=== PATIENT | female | born 1960 | race Two or more races ===

== ENCOUNTER → 2017-05-08 | Outpatient (CLI) | payer OTHER ==
[~2017-05-08] MED LIST: CALTTAB5 PO
[2017-05-08 15:23] LABS: AUTOMATED NEUTROPHIL # 2.3 TH/MM3 (1.8-7.7); BASOPHIL # 0.1 TH/MM3 (0-0.2); BASOPHIL % 1.3 % (0.0-2.0); EOSINOPHIL # 0.2 TH/MM3 (0-0.4); EOSINOPHIL % 3.5 % (0.0-4.0); HEMATOCRIT 34.7 % (35.0-46.0); HEMO FLAGS DIFF FINAL; LYMPH % 46.4 % (9.0-44.0); LYMPHOCYTE # 2.6 TH/MM3 (1.0-4.8); MEAN CELL VOLUME 86.1 FL (80.0-100.0); MEAN CORPUSCULAR HEMOGLOBIN 29.1 PG (27.0-34.0); MEAN CORPUSCULAR HGB CONC 33.8 % (32.0-36.0); MONO % 7.9 % (0.0-8.0); NEUT % 40.9 % (16.0-70.0); PLATELET COUNT 316 TH/MM3 (150-450); RED BLOOD COUNT 4.04 MIL/MM3 (4.00-5.30); RED CELL DISTRIBUTION WIDTH 13.6 % (11.6-17.2); WHITE BLOOD COUNT 5.5 TH/MM3 (4.0-11.0)
[2017-05-08 15:25] LABS: BACTERIA, URINE RARE /hpf; BLOOD, URINE NEG (NEG); COMMENT (UR) CULT NOT INDICATED; CULTURE IF INDICATED CULT NOT INDICATED; GLUCOSE,URINE NEG (NEG); KETONE, URINE NEG (NEG); NITRITE,URINE NEG (NEG); SQUAMOUS EPITHELIAL CELL URINE <1 /hpf (0-5); URINE COLOR LIGHT-YELLOW (YELLW/STRAW)
[2017-05-08 15:58] LABS: ALT (GPT) 16 U/L (10-53); ANION GAP 7 MEQ/L (5-15); AST (GOT) 18 U/L (15-37); BICARBONATE 28.4 MEQ/L (21.0-32.0); BLOOD UREA NITROGEN 13 MG/DL (7-18); CHLORIDE 105 MEQ/L (98-107); GLOMERULAR FILTRATION RATE 83 ML/MIN (>89); GLUCOSE,FASTING 97 MG/DL (74-99); POTASSIUM 3.8 MEQ/L (3.5-5.1); SODIUM (NA) 140 MEQ/L (136-145)
[2017-05-08 16:00] LABS: ALKALINE PHOSPHATASE 58 U/L (45-117); TOTAL BILIRUBIN ADULT 0.4 MG/DL (0.2-1.0)
--- NOTE | 2017-05-09 23:46 | EKG ---
Date Performed: 05/08/2017 Time Performed: 14:31:14 PTAGE: 56 years EKG: Sinus rhythm NONSPECIFIC T-WAVE ABNORMALITY BORDERLINE ECG NO PREVIOUS TRACING DOCTOR: Francesca Max Interpretating Date/Time 05/09/2017 23:44:59
== END ==
LOC: CPRE 14:11
PROVIDERS: ATTEND Obstetrics & Gynecology Gynecology
DX: Z01.812 Encounter for preprocedural laboratory examination (principal); Z01.810 Encounter for preprocedural cardiovascular examination; N99.3 Prolapse of vaginal vault after hysterectomy; R94.31 Abnormal electrocardiogram [ECG] [EKG]
CPT/HCPCS: 36415; 80053; 81001; 85025; 93005

== ENCOUNTER → 2017-05-23 | Day surgery (SDC) | payer OTHER ==
--- NOTE | 2017-05-09 15:23 | MH ---
cc: JAMAL POLLARD MD,AIMEE Suárez MD DATE OF ADMISSION: 05/23/2017 DATE OF : 1960 ADMITTING DIAGNOSIS: Anterior posterior repair. HISTORY OF PRESENT ILLNESS The patient is a 56-year-old female, 4, para 4 status post prior hysterectomy in 2005 for pelvic organ prolapse who presents with complaints of pelvic pressure, discomfort and bulging sensation. On exam she has stage II pelvic organ prolapse and has elected for definitive repair. PAST MEDICAL HISTORY The patient's past medical history is negative for heart, lung, liver disease, hypertension, diabetes or stroke. ALLERGIES None. MEDICATIONS None. GYNECOLOGIC HISTORY No STDs or abnormal Pap smears. Hysterectomy for benign condition through vaginal approach. OBSTETRICAL HISTORY Four vaginal deliveries, largest baby 8 pounds. SOCIAL HISTORY Does not smoke, use alcohol or drugs. Has good social support. FAMILY HISTORY Noncontributory. PAST SURGICAL HISTORY As above. Rotator cuff surgery. REVIEW OF SYSTEMS No chest pain, orthopnea, PND. No nausea, vomiting, fever, chills. No vaginal bleeding or discharge. Issues are pelvic pressure, bulging and occasional incontinence. Remainder of 14-point review negative. PHYSICAL EXAMINATION VITAL SIGNS: She is afebrile. Vital signs are stable. Blood pressure is 120/70, height 5 feet 1 inch, weight 144, BMI is 27. GENERAL: Patient is alert and oriented, in no acute distress. No sign of cognitive dysfunction or depression. HEENT: Within normal limits. NECK: Supple. No JVD. CHEST: Clear. HEART: Regular rate and rhythm. ABDOMEN: Soft, nontender. No hepatosplenomegaly. No CVA tenderness. PELVIC: Exam in the office notes POP-Q score: Aa is 0, Ap is 0. Point C is 0. Genital hiatus is 8. Perineal body is 1. Further exam under anesthesia. EXTREMITIES: Normal skin without rashes. NEURO: Nonfocal. No DVT signs. ASSESSMENT Patient with pelvic organ prolapse all three compartments, stage II. The patient uses her daughter as a corn sheller operator, per her request. After long discussion with the patient and her daughter we have achieved informed consent regarding pelvic organ repair. She is aware of the risks, benefits, alternatives to planned procedure including damage to surrounding organs, bleeding, infection, pain with intercourse ___ incontinence, need for further procedure and pelvic organ dysfunction. The patient elects to proceed. At this point we use DVT prophylaxis with sequential compression device, antibiotic prophylaxis Ancef 2 grams. Anticipate outpatient procedure. MD HIEN Smalwlood/JESSE /2:26 PM /3:27 PM
[~2017-05-23] VITALS: Ht 154.9 cm; Wt 66.2 kg
[~2017-05-23] MED LIST changes: +*morphine SULFATE 8 MG/ML PERIprocedure ONLY ONE; +ACETAMINOPHEN 1000 MG/100 ML VIAL IV ONE; -CALTTAB5 PO; +CHLORHEXIDINE GLUCONATE 2 % 1 PACK (2 CLOTHS) TOPICAL PRN; +DO NOT ADM ANY ANTICOAGULANT DRUGS PRN; +FLUORESCEIN SOD 10% SOLN 500 MG/5 ML AMP IV ONE; +INSULIN HUMAN REGULAR 1,000 UNITS/10 ML VIAL SQ PRN; +IRR ONE; +KETOROLAC TROMETHAMINE 30 MG/ML (IVP) VIAL IV PUSH ONE; +KETOROLAC TROMETHAMINE 30 MG/ML (IVP) VIAL IV PUSH PRN; +LACTATED RINGER'S 1000 ML INJ 1,000 ML IV ONE; +LACTATED RINGER'S 1000 ML IV PRN; +LIDOCAINE 1%/EPINEPHrine 1:100,000 SOLN 30 ML VIAL INFIL ONE; +METHYLENE BLUE 10 MG/ML VIAL OTHER ONE; +METOPROLOL TARTRATE 25 MG TAB PO PRN; +MIDAZOLAM HCL 2 MG/2 ML VIAL ONE; +ONDANSETRON HCL 4 MG/2 ML VIAL IV PUSH ONE; +ONDANSETRON HCL 4 MG/2 ML VIAL IV PUSH PRN; +POVIDONE IODINE 5% (ANTISEPSIS KIT) 4 APPLICATIONS EACH NARE PRN; +PROPOFOL 200 MG/20 ML AMP IV ONE; +SODIUM CHLORID 0.9% 500 ML IV PRN; +SODIUM CHLORIDE 0.9% ONE; +ceFAZolin 2 GM PREMIX 50 ML IV SCH; +ePHEDrine/NS 25 MG/5 ML SYR IV ONE; +traMADol HCL 50 MG TAB PO PRN
[2017-05-23 08:09] VITALS: BP 130/85; PULSE 72; RESP 18; TEMP 97.7; O2SAT 98
--- NOTE | 2017-05-23 12:28 | MP ---
cc: SREE POLLARD MD DATE OF SURGERY 05/23/2017 PREOPERATIVE DIAGNOSES Cystocele, rectocele, vaginal vault prolapse following prior hysterectomy. POSTOPERATIVE DIAGNOSES Cystocele, rectocele, vaginal vault prolapse following prior hysterectomy. Anal sphincter external sphincter defect 10 o'clock - 12 o'clock position. PROCEDURE Anterior/posterior repair with enterocele, sacrospinous ligament repair right-sided, sphincteroplasty. SURGEON Sree Pollard MD ANESTHESIA Endotracheal BLOOD LOSS 25 cc URINE OUTPUT 100 cc INTERIM CONTROLLER [employer] x2 FLUIDS 1000 cc of crystalloid FINDINGS External genitalia normal POP-Q score: Aa is 0, Ap is 0. Point C is 0. Total vaginal length is 7. Genital hiatus is 8. Perineal body is 2 with defect from the 10 o'clock to 2 o'clock with classic dove tail sign. Following repair: POP-Q score: Aa is -3, Ap is -3. Point C is -7. Total vaginal length is 7. Genital hiatus is 5. Perineal body is 5. Rectal exam normal following repair. Cystoscopy normal following repair. SPECIMENS None COMPLICATIONS None DISPOSITION To recover room stable. COUNTS Needle and sponge counts correct. DRAINS Red catheter DISPOSITION Patient or Recovery Room stable. Antibiotic prophylaxis Ancef 2 grams. DVT prophylaxis sequential compression device. Time-out procedure per protocol. SUMMARY OF INDICATIONS FOR THE PROCEDURE Patient with prior hysterectomy and pelvic organ prolapse all three compartments. Some decreased vaginal length noted preoperatively The patient was taken to the operating room theater, prepped and draped in a fashion appropriate for the planned procedure. She was in the dorsal lithotomy position with careful attention paid to placement of legs in the stirrups to avoid undue stress to sensitive vascular structures. The above findings noted. Neurovascular integrity documented. Red catheter was placed. Methylene blue was instilled into the bladder and the patient received 1 cc of fluorescein dye IV. Anterior apartment was approached first. [place] was identified. Infiltration of epinephrine/lidocaine solution was performed. There was no complication dissecting the bladder from the mucosa. There was enterocele encountered. This was closed with a pursestring suture. Plication of the paravesical tissues were performed using delayed absorbable suture. Cystoscopy was performed noted no damage to urethra or bladder, normal trigone and dome of the bladder. Ureteral patency was documented x2. The vaginal cuff was trimmed and mucosa was closed with a running Vicryl suture with good anatomic hemostatic result. Hemostatic matrix was used for hemostasis. The patient had some degree of vaginal foreshortening prior to initiating surgery. We were concerned about getting some more vaginal length so we were going to move with a sacrospinous ligament suspension. We made an incision from the introitus to the apex deviating off to the right. The perirectal space was identified and developed. The sacrospinous ligament was identified. A 0 Prolene suture was placed and this was placed to the right side of the vagina with a jamari type mechanism. Posterior repair was performed in standard fashion. A minimal amount of mucosa was trimmed and the mucosa was closed with a running Vicryl suture. We cinched down the sacrospinous ligament suspension suture. This gave us vaginal length of approximately 7 cm. There was an external sphincter defect noted from 10 o'clock to 2 o'clock position with a very foreshortened perineal body. The wedge of perineum was removed. Sphincter edges were identified with an overlapping technique and reapproximated across the midline. Then perineorrhaphy was performed with delayed absorbable suture. Rectal exam normal following repair. There was no damage to the rectum. No compromise of the lumen by suture. The suture line was intact. Patient reversed from anesthesia, taken to recovery in stable condition. MD HIEN Smallwood/ANOOP /12:04 PM /12:21 PM
[2017-05-23 15:07] VITALS: BP 117/77; PULSE 80; RESP 18; TEMP 98; O2SAT 98
== END | disposition home or self-care (01) ==
LOC: HSDC 07:30 → EDUNIT# 09:30
PROVIDERS: ATTEND Obstetrics & Gynecology Gynecology
DX: N99.3 Prolapse of vaginal vault after hysterectomy (principal)
CPT/HCPCS: 00942; 57260; 57282; J0131; J0690; J1885; J2250; J2270; J2405; J3010; J7120